=== PATIENT | male | born 2000 | race Caucasian/White ===

== ENCOUNTER 2020-05-21 14:21 | Emergency (ER) | payer SELFPAY ==
[2020-05-21 14:22] VITALS: BP 142/89; PULSE 111; RESP 20; O2SAT 99; BMI 36.6
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
[2020-05-21 16:10] VITALS: BP 142/89; PULSE 111; RESP 20; TEMP 36.6; O2SAT 99
== END 2020-05-21 16:12 | disposition home or self-care (01) ==
LOC: ER 14:56
PROVIDERS: Emergency Provider Emergency Medicine
DX: S01.01XA Laceration without foreign body of scalp, initial encounter (principal); Y08.02XA Assault by strike by baseball bat, initial encounter; Y92.89 Other specified places as the place of occurrence of the external cause; Z23 Encounter for immunization
CPT/HCPCS: 12002; 90471; 90715; 99282

== ENCOUNTER 2020-05-28 09:18 | Emergency (ER) | payer SELFPAY ==
[2020-05-28 09:31] VITALS: BP 140/70; PULSE 91; RESP 18; O2SAT 100; BMI 36.9
[2020-05-28 09:33] VITALS: BP 140/70; PULSE 91; RESP 18; TEMP 36.7; O2SAT 100
== END 2020-05-28 09:34 | disposition home or self-care (01) ==
LOC: ER 09:29
PROVIDERS: Emergency Provider Emergency Medicine
DX: S01.01XD Laceration without foreign body of scalp, subsequent encounter (principal)
CPT/HCPCS: 99201

== ENCOUNTER 2023-08-29 11:07 | Emergency (ER) | payer SELFPAY ==
[2023-08-29 11:10] VITALS: BP 171/104; PULSE 120; RESP 20; TEMP 36.6; O2SAT 96; BMI 37.5
--- NOTE | 2023-08-29 11:21 | PC.NURSE ---
Dr. Stanford at [facility]
--- NOTE | 2023-08-29 11:39 | HMH.EDGENADL ---
Discharge Plan Disposition Patient Disposition: Home, Self-Care Referrals Follow up/Referrals: Provider,Referral, MD [Primary Care Provider] - See instructions Activity Restrictions/Add. Instructions Additional Instructions/Restrictions: Bactrim twice daily for 7 days, avoid alcohol while taking this. Apply ointment to both nostrils twice daily for 5 days. Use chlorhexidine soap everywhere except around eyes daily for 5-7 days. Apply to sponge, apply soap and suds to entire body (including crevices and soles of feet), linseed oil boiler the shower for 2 to 3 minutes before rinsing. Call your family doctor to establish care for this visit to the emergency department and schedule follow-up within 48 hours to ensure improvement. If you have any worsening of your condition or any other concerning signs or symptoms, return to the emergency department or your primary care doctor for further evaluation. Clinical Impressions Clinical Impression: Abscess of lower back Instructions Patient Instructions: DI for Skin Abscess Discharge ED Provider: Jules Stanford General Adult HPI General Chief complaint: Skin/Abscess/Foreign Body Stated complaint: poss cysts on back Time Seen by Provider: 08/29/23 11:10 Mode of Arrival: Ambulatory Source of Information: Patient Limitations: No Limitations Description of Symptoms (Recalled from ER Triage Doc. by RN): bump on back for 1 week. History of Present Illness HPI narrative: 23-year-old male history of numerous abscesses presenting with abscess. Patient states he has started having abscess on his back for about 1 week, progressively gotten worse. Tried to put cream on it and it drained a bit, but getting progressively painful. Moderate pain, does not radiate, no fevers or chills or any other systemic signs or symptoms. Related Data Allergies Allergy/AdvReac Type Severity Reaction Status Date / Time orange Allergy Verified 08/29/23 11:[address] [facility] Disclaimer: The information contained in this section may have been updated after the patient was seen, as this information can be updated by other users. Social History Smoking Status: Never smoker alcohol intake: never current occupational status: other Travel in the last 8 weeks: None ROS Obtained: Yes All systems reviewed & no additional complaints except as documented Physical Exam General General appearance: alert and in no apparent distress Head Head exam: atraumatic and normocephalic Eye Eye exam: Present normal appearance, PERRL and EOMI ENT ENT exam: Present mucous membranes moist Neck Neck exam: Present normal inspection, full ROM and trachea midline Respiratory Respiratory exam: Absent respiratory distress, wheezes, stridor, accessory muscle use or prolonged expiratory phase Cardiovascular Cardiovascular exam: Present normal rhythm Abdominal Exam Abdominal exam: Present soft; Absent distention, tenderness, guarding, rebound, rigidity or normal bowel sounds Extremities Exam Extremities exam: Absent edema Back Exam Back exam: Present tenderness and other (3cm round, indurated, cellulitic abscess just right of midline on lumbar spine.) Neurological Exam Neurological exam: Present alert, oriented X3, CN II-XII intact and normal gait; Absent motor sensory deficit Skin Skin exam: Present warm and dry; Absent diaphoresis or erythema Medical Decision Making Medical Records Medical records reviewed: Yes I reviewed the patient's medical records. Arn[place]fo Inquiry Pt receiving controlled substance: No [place] was queried for this patient: No Vital Signs: 08/29/23 11:10 Temperature 98 F Temperature Source Oral Pulse Rate [Right] 120 H Respiratory Rate 20 Blood Pressure [Right Arm] 171/104 H Blood Pressure Mean [Right Arm] 126 02 Sat by Pulse Oximetry 96 Oxygen Delivery Method Room Air Orders (Tests/Meds): ED MEDICATIONS Discontinued Medications Generic Name Dose Route Start Last Admin Trade Name
[2023-08-29 12:15] VITALS: BP 126/83; PULSE 72; RESP 19; TEMP 36.8; O2SAT 98
== END 2023-08-29 12:17 | disposition home or self-care (01) ==
PROVIDERS: Emergency Provider Emergency Medicine
DX: L02.212 Cutaneous abscess of back [any part, except buttock and flank] (principal)
CPT/HCPCS: 10061; 99283